=== PATIENT | male | born 1960 | race African-American/Black ===

== ENCOUNTER 2017-07-21 07:18 | Inpatient (IN) ==
[2017-07-21] MEDS ORDERED: SODIUM CHLORIDE 0.9% 500 ML IV STA (07:32)
[2017-07-21] MEDS ORDERED: ONDANSETRON 4 MG/2 ML VIAL IV PRN ×2 (07:32→11:09)
[2017-07-21] MEDS ORDERED: DEXAMETHASONE 10 MG/1 ML VIAL IV STA (07:55)
[2017-07-21] MEDS ORDERED: DEXAMETHASONE 10 MG/1 ML VIAL ONE (08:05)
[2017-07-21 08:08] LABS: Basophils # 0.1 10*3/uL (0.0-0.2); Basophils % 1.5 % (0.0-0.8); Eosinophils # 0.2 10*3/uL (0.0-0.87); Eosinophils % 3.4 % (0.00-10.9); Hematocrit 36.2 VOL% (42.0-52.0); Hemoglobin 12.3 GM/DL (14.0-18.0); Immature Granulocytes % 0.2 %; Immature Granulocytes Absolute 0.01 #; Lymphocytes % 36.5 % (21.2-54.2); Mean Corpuscular Hemoglobin 30 PG (27-34); Mean Corpuscular Volume 88.1 FL (87-102); Mean Platelet Volume 9.4 FL (9.6-12.0); Monocytes # 0.5 10*3/uL (0.11-0.8); Monocytes % 9.5 % (1.7-12.7); Neutrophils # 2.6 10*3/uL (1.4-7.4); Neutrophils % 48.9 % (38.7-73.9); Platelet Count 367 T/CUMM (130-400); Red Blood Count 4.11 MC/CUMM (3.8-5.5); Red Cell Distribution Width 13.3 % (9.3-17.3); White Blood Count 5.4 T/CUMM (4-12)
[2017-07-21 08:51] LABS: Alanine Aminotransferase 17 U/L (16-61); Albumin 3.6 G/DL (3.4-5.0); Alkaline Phosphatase 51 U/L (45-117); Aspartate Amino Transferase 25 U/L (0-37); Blood Urea Nitrogen 6 MG/DL (7-18); Calcium 9.5 MG/DL (8.5-10.1); Glucose 101 MG/DL (74-106); Osmolality,Calculated 274.5 MOS/KG (273-304); Sodium 139 MMOL/L (136-145); Troponin I Only < 0.015 NG/ML (0.00-0.045)
[2017-07-21 09:25] LABS: Cancer Antigen 19-9 32.3 U/ML (0-37); Carcinoembryonic Antigen 65.9 NG/ML (0.0-5.0)
[2017-07-21 10:19] LABS: Risk Ratio 4.5
[2017-07-21 10:37] LABS: Apearance,Urine CLEAR (Clear); Bilirubin,Urine Negative (Negative); Blood, Urine Negative (Negative); Glucose,Urine (UA) Negative (Negative); Ketones,Urine Negative (Negative); Mucus,Urine Occasional /LPF (Occasional); Nitrite,Urine Negative (Negative); Protein,Urine Negative; RBC,Urine 1 /HPF (0-4); Urine Color Yellow (Yellow); Urine Urobilinogen < 2.0 EU/DL (0.2-1.0); WBC,Urine 1 /HPF (0-6)
[2017-07-21 10:44] LABS: Barbiturates Screen,Urine Negative (Negative); Benzodiazepines Screen,Urine Negative (Negative); Cannabinoid Screen,Urine Negative (Negative); Opiate Screen,Urine Negative (Negative); Phencyclidine Screen,Urine Negative (Negative)
[2017-07-21] MEDS ORDERED: LACTULOSE 20 GM/30 ML UDCUP PO PRN (11:09)
[2017-07-21] MEDS ORDERED: LOPERAMIDE 2 MG CAPSULE PO PRN ×2 (11:09)
[2017-07-21] MEDS ORDERED: MYLANTA/LIDO VISC 2:1 300 ML BOTTLE SWISH/SPIT PRN (11:09)
[2017-07-21] MEDS ORDERED: ACETAMINOPHEN 325 MG TABLET PO PRN (11:09)
[2017-07-21] MEDS ORDERED: ALPRAZolam 0.25 MG TABLET PO PRN (11:09)
[2017-07-21] MEDS ORDERED: PROMETHAZINE INJ 25 MG in SODIUM CHLORIDE 0.9% 50 ML IV PRN (11:09)
[2017-07-21] MEDS ORDERED: guaiFENesin 200 MG/10 ML UDCUP PO PRN (11:09)
[2017-07-21] MEDS ORDERED: chlorproMAZINE INJ 50 MG in SODIUM CHLORIDE 0.9% 100 ML IV PRN (11:09)
[2017-07-21] MEDS ORDERED: BENZTROPINE 2 MG/2 ML AMP IV PRN (11:09)
[2017-07-21] MEDS ORDERED: diphenhydrAMINE CAP 25 MG CAPSULE PO PRN (11:09)
[2017-07-21] MEDS ORDERED: MYLANTA/LIDO VISC 2:1 300 ML BOTTLE SWISH/SWAL PRN (11:09)
[2017-07-21] MEDS ORDERED: chlorproMAZINE 25 MG TABLET PO PRN (11:09)
[2017-07-21] MEDS ORDERED: chlorproMAZINE INJ 25 MG in SODIUM CHLORIDE 0.9% 100 ML IV PRN (11:09)
[2017-07-21] MEDS ORDERED: MAGNESIUM HYDROXIDE SUSP 30 ML UDCUP PO PRN (11:09)
[2017-07-21] MEDS ORDERED: TEMAZEPAM 7.5 MG CAPSULE PO PRN (11:09)
[2017-07-21] MEDS ORDERED: traMADol 50 MG TABLET PO PRN (11:09)
[2017-07-21] MEDS ORDERED: ALUMINUM/MAGNES/SIMETH MAX STR 30 ML UDCUP PO PRN (11:09)
[2017-07-21 11:43] LABS: Basophils % 0.4 % (0.0-0.8); Eosinophils % 0.3 % (0.00-10.9); Hematocrit 38.6 VOL% (42.0-52.0); Hemoglobin 13.1 GM/DL (14.0-18.0); Immature Granulocytes % 0.3 %; Immature Granulocytes Absolute 0.02 #; Lymphocytes # 0.6 10*3/uL (1.4-4.0); Lymphocytes % 8.2 % (21.2-54.2); Mean Corpuscular HGB Conc 33.9 GM/DL (32-36); Mean Corpuscular Hemoglobin 30 PG (27-34); Mean Corpuscular Volume 89.4 FL (87-102); Mean Platelet Volume 9.4 FL (9.6-12.0); Monocytes # 0.1 10*3/uL (0.11-0.8); Monocytes % 1.3 % (1.7-12.7); Neutrophils % 89.5 % (38.7-73.9); Platelet Count 376 T/CUMM (130-400); Red Blood Count 4.32 MC/CUMM (3.8-5.5); Red Cell Distribution Width 13.3 % (9.3-17.3); White Blood Count 7.9 T/CUMM (4-12)
[2017-07-21 12:11] LABS: Albumin 3.8 G/DL (3.4-5.0); Bilirubin,Total 0.6 MG/DL (0.2-1.0); Calcium 9.7 MG/DL (8.5-10.1); Osmolality,Calculated 270.8 MOS/KG (273-304); Potassium 3.8 MMOL/L (3.5-5.1); Total Protein 8.7 G/DL (6.4-8.3)
[2017-07-21] MEDS: SODIUM CHLORIDE 0.9% 1,000 ML IV SCH (16:40)
[2017-07-21] MEDS: DEXAMETHASONE 4 MG/1 ML VIAL IV SCH ×3 (16:41→21:53)
[2017-07-21] MEDS: ALPRAZolam 0.25 MG TABLET PO SCH (21:52)
[2017-07-22] MEDS: DEXAMETHASONE 4 MG/1 ML VIAL IV SCH ×4 (05:53→22:06)
[2017-07-22] MEDS: SODIUM CHLORIDE 0.9% 1,000 ML IV SCH ×2 (05:55→20:03)
[2017-07-22] MEDS: ALPRAZolam 0.25 MG TABLET PO SCH ×2 (09:03→20:18)
[2017-07-23] MEDS: DEXAMETHASONE 4 MG/1 ML VIAL IV SCH (04:38)
[2017-07-23] MEDS: SODIUM CHLORIDE 0.9% 1,000 ML IV SCH ×3 (04:42→23:43)
[2017-07-23] MEDS: ALPRAZolam 0.25 MG TABLET PO SCH ×3 (08:47→20:47)
[2017-07-23] MEDS: DEXAMETHASONE 4 MG TABLET PO SCH ×3 (14:48→20:47)
[2017-07-24] MEDS: DEXAMETHASONE 4 MG TABLET PO SCH ×3 (09:15→20:26)
[2017-07-24] MEDS: ALPRAZolam 0.25 MG TABLET PO SCH ×2 (09:15→20:26)
[2017-07-24] MEDS: SODIUM CHLORIDE 0.9% 1,000 ML IV SCH (09:16)
[2017-07-24] MEDS ORDERED: DIAZEPAM 5 MG TABLET PO ONE (09:52)
[2017-07-25 04:44] LABS: Basophils % 0.1 % (0.0-0.8); Hemoglobin 12.4 GM/DL (14.0-18.0); Immature Granulocytes % 0.4 %; Immature Granulocytes Absolute 0.04 #; Lymphocytes # 1.1 10*3/uL (1.4-4.0); Lymphocytes % 10.1 % (21.2-54.2); Mean Corpuscular HGB Conc 35.4 GM/DL (32-36); Mean Corpuscular Hemoglobin 31 PG (27-34); Mean Corpuscular Volume 86.2 FL (87-102); Mean Platelet Volume 10.2 FL (9.6-12.0); Monocytes # 0.5 10*3/uL (0.11-0.8); Monocytes % 4.6 % (1.7-12.7); Neutrophils # 9.1 10*3/uL (1.4-7.4); Neutrophils % 84.8 % (38.7-73.9); Platelet Count 411 T/CUMM (130-400); Red Blood Count 4.06 MC/CUMM (3.8-5.5); Red Cell Distribution Width 13.6 % (9.3-17.3); White Blood Count 10.7 T/CUMM (4-12)
[2017-07-25 05:18] LABS: Albumin 3.2 G/DL (3.4-5.0); Bilirubin,Total 0.5 MG/DL (0.2-1.0); Calcium 9.1 MG/DL (8.5-10.1); Osmolality,Calculated 274.8 MOS/KG (273-304); Potassium 4.2 MMOL/L (3.5-5.1); Total Protein 7.6 G/DL (6.4-8.3)
[2017-07-25] MEDS: SODIUM CHLORIDE 0.9% 1,000 ML IV SCH (09:05)
[2017-07-25] MEDS: ALPRAZolam 0.25 MG TABLET PO SCH (09:06)
[2017-07-25] MEDS: DEXAMETHASONE 4 MG TABLET PO SCH (09:06)
[2017-07-25 11:53] VITALS: BP 105/70
== END 2017-07-25 12:29 | disposition home or self-care (01) | DRG 843 ==
LOC: N.ED 07:18 → N.EDINP 09:37 → N.4E 10:48
PROVIDERS: ADMIT Specialist; ATTEND Specialist

== ENCOUNTER 2017-11-24 14:49 | Inpatient (IN) ==
[2017-11-24] MEDS ORDERED: SODIUM CHLORIDE 0.9% 1,000 ML IV STA (15:09)
[2017-11-24 15:53] LABS: Basophils # 0.1 10*3/uL (0.0-0.2); Basophils % 1.3 % (0.0-0.8); Eosinophils % 0.1 % (0.00-10.9); Hematocrit 28.9 VOL% (42.0-52.0); Hemoglobin 9.6 GM/DL (14.0-18.0); Immature Granulocytes % 0.3 %; Immature Granulocytes Absolute 0.02 #; Lymphocytes # 1.1 10*3/uL (1.4-4.0); Lymphocytes % 15.9 % (21.2-54.2); Mean Corpuscular HGB Conc 33.2 GM/DL (32-36); Mean Corpuscular Hemoglobin 30 PG (27-34); Mean Corpuscular Volume 89.8 FL (87-102); Mean Platelet Volume 9.8 FL (9.6-12.0); Monocytes # 0.6 10*3/uL (0.11-0.8); Monocytes % 9.3 % (1.7-12.7); NRBC # 0.02 10*3/uL; Neutrophils % 73.1 % (38.7-73.9); Platelet Count 353 T/CUMM (130-400); Red Blood Count 3.22 MC/CUMM (3.8-5.5); Red Cell Distribution Width 18.6 % (9.3-17.3); White Blood Count 6.9 T/CUMM (4-12)
[2017-11-24 16:11] LABS: Alanine Aminotransferase 27 U/L (16-61); Albumin 3.3 G/DL (3.4-5.0); Alkaline Phosphatase 50 U/L (45-117); Aspartate Amino Transferase 32 U/L (0-37); Blood Urea Nitrogen 16 MG/DL (7-18); Calcium 8.8 MG/DL (8.5-10.1); Glucose 106 MG/DL (74-106); Osmolality,Calculated 286.8 MOS/KG (273-304); Potassium 3.3 MMOL/L (3.5-5.1); Sodium 144 MMOL/L (136-145); Total Protein 7.5 G/DL (6.4-8.3)
[2017-11-24 18:35] LABS: Apearance,Urine CLOUDY (Clear); Bilirubin,Urine Negative (Negative); Blood, Urine Negative (Negative); Glucose,Urine (UA) Negative (Negative); Hyaline Casts,Urine 36 /LPF (0-3); Ketones,Urine 5 mg/dL (Negative); Mucus,Urine Occasional /LPF (Occasional); Nitrite,Urine Negative (Negative); Protein,Urine 30 MG/DL; RBC,Urine <1 /HPF (0-4); Squamous Epithelial Cell,Urine Occasional /HPF (0-10); Urine Color Yellow (Yellow); Urine Specific Gravity 1.015 (1.001-1.035); Urine Urobilinogen < 2.0 EU/DL (0.2-1.0); WBC,Urine 2 /HPF (0-6)
[2017-11-24 18:51] LABS: Barbiturates Screen,Urine Negative (Negative); Benzodiazepines Screen,Urine Negative (Negative); Cannabinoid Screen,Urine Negative (Negative); Opiate Screen,Urine Negative (Negative); Phencyclidine Screen,Urine Negative (Negative)
[2017-11-24] MEDS ORDERED: MAGNESIUM SULF RIDER 4 GM in PREMIX 1 EACH IV PRN (19:52)
[2017-11-24] MEDS ORDERED: MAGNESIUM SULF RIDER 2 GM in PREMIX 1 EACH IV PRN (19:52)
[2017-11-24] MEDS: DEXAMETHASONE 4 MG TABLET PO SCH (21:12)
[2017-11-24] MEDS: SODIUM CHLORIDE 0.9% 1,000 ML IV SCH (21:14)
[2017-11-24] MEDS: ENOXAPARIN 40 MG/0.4 ML SYRINGE SUBCUT SCH (21:20)
[2017-11-24 21:31] LABS: Folate 8.9 NG/ML (5.4-24.0)
[2017-11-25 06:49] LABS: Basophils % 0.3 % (0.0-0.8); Hematocrit 27.1 VOL% (42.0-52.0); Hemoglobin 9.1 GM/DL (14.0-18.0); Immature Granulocytes % 0.4 %; Immature Granulocytes Absolute 0.03 #; Lymphocytes # 0.5 10*3/uL (1.4-4.0); Lymphocytes % 7.6 % (21.2-54.2); Mean Corpuscular HGB Conc 33.6 GM/DL (32-36); Mean Corpuscular Hemoglobin 30 PG (27-34); Mean Corpuscular Volume 89.1 FL (87-102); Mean Platelet Volume 10.4 FL (9.6-12.0); Monocytes # 0.2 10*3/uL (0.11-0.8); Monocytes % 2.8 % (1.7-12.7); Neutrophils % 88.9 % (38.7-73.9); Platelet Count 331 T/CUMM (130-400); Red Blood Count 3.04 MC/CUMM (3.8-5.5); Red Cell Distribution Width 18.6 % (9.3-17.3); White Blood Count 6.7 T/CUMM (4-12)
[2017-11-25 07:32] LABS: Albumin 3.2 G/DL (3.4-5.0); Bilirubin,Total 1.2 MG/DL (0.2-1.0); Calcium 7.8 MG/DL (8.5-10.1); Osmolality,Calculated 289.6 MOS/KG (273-304); Potassium 3.4 MMOL/L (3.5-5.1); Thyroid Stimulating Hormone 0.201 uIU/ml (0.358-3.74); Total Protein 6.5 G/DL (6.4-8.3)
[2017-11-25] MEDS: SODIUM CHLORIDE 0.9% 1,000 ML IV SCH (08:56)
[2017-11-25] MEDS: PANTOPRAZOLE 40 MG TABLET PO SCH (08:57)
[2017-11-25] MEDS: DEXAMETHASONE 4 MG TABLET PO SCH ×2 (08:57→20:57)
[2017-11-25] MEDS: ENOXAPARIN 40 MG/0.4 ML SYRINGE SUBCUT SCH (20:58)
[2017-11-26] MEDS: DEXAMETHASONE 4 MG TABLET PO SCH ×2 (09:28→21:47)
[2017-11-26] MEDS: PANTOPRAZOLE 40 MG TABLET PO SCH (09:28)
[2017-11-26] MEDS ORDERED: ZIPRASIDONE 20 MG/1 ML VIAL IM PRN (20:59)
[2017-11-26] MEDS: SODIUM CHLORIDE 0.9% 1,000 ML IV SCH ×2 (21:45→21:46)
[2017-11-26] MEDS: ENOXAPARIN 40 MG/0.4 ML SYRINGE SUBCUT SCH (21:47)
[2017-11-26 23:20] VITALS: BP 126/73
[2017-11-27] MEDS ORDERED: HALOPERIDOL 5 MG/ML AMP IM ONE (02:30)
[2017-11-27] MEDS ORDERED: LORazepam 2 MG/1 ML VIAL IV PRN (07:00)
[2017-11-27] MEDS ORDERED: MORPHINE 4 MG/1 ML VIAL IV PRN (07:00)
[2017-11-27] MEDS ORDERED: DEXAMETHASONE 4 MG/1 ML VIAL IV SCH ×2 (07:30→09:00)
[2017-11-27] MEDS ORDERED: TUBERCULIN SKIN TEST 0.1 ML SYRINGE INTRADERM ONE (08:41)
[2017-11-27] MEDS ORDERED: fentaNYL 75 MCG/HR PATCH TRANSDERM SCH (09:00)
[2017-11-27] MEDS ORDERED: SCOPOLAMINE 1.5 MG PATCH TRANSDERM SCH (09:00)
== END 2017-11-27 15:45 | DRG 52 ==
LOC: EDUNIT# → EDBD → N.ED 14:49 → N.EDINP 16:54 → N.5E 19:29
PROVIDERS: ADMIT Internal Medicine; ATTEND Internal Medicine